=== PATIENT | male | born 1955 ===

== ENCOUNTER 2017-11-22 07:12 | Inpatient (IN) | payer BC, OTHER ==
[2017-11-22] MEDS ORDERED: NALOXONE 0.4 MG/ML VIAL. (07:55)
[2017-11-22] MEDS ORDERED: NALOXONE 2 MG/2 ML DISP.SYRIN. (07:58)
[2017-11-22] MEDS: NALOXONE 2 MG/2 ML DISP.SYRIN. IV (08:01)
[2017-11-22 08:02] LABS: ADD MAN DIFF? NO
[2017-11-22 08:07] LABS: BASO # 0.1 x10^3/uL (0.0-0.2); BASO % 1 % (0-3); EOS # 0.4 x10^3/uL (0.0-0.7); EOS % 3 % (0-3); HEMATOCRIT 43.3 % (39.0-53.0); HEMOGLOBIN 15.1 g/dL (13.0-17.5); LYMPH # 3.4 x10^3/uL (1.0-4.8); LYMPH % 31 % (24-48); MEAN CORPUSCULAR HEMOGLOBIN 33 pg (25-35); MEAN CORPUSCULAR HGB CONC 35 g/dL (31-37); MEAN CORPUSCULAR VOLUME 93 fL (79-100); MONO # 0.8 x10^3/uL (0.0-1.1); MONO % 7 % (0-9); NEUT # 6.4 x10^3uL (1.8-7.7); NEUT % 58 % (31-73); PLATELET COUNT 277 x10^3/uL (140-400); RED BLOOD COUNT 4.65 x10^6/uL (4.30-5.70); RED CELL DISTRIBUTION WIDTH 14.5 % (11.5-14.5); WHITE BLOOD COUNT 11.1 x10^3/uL (4.0-11.0)
[2017-11-22 08:15] LABS: ANION GAP 13 (6-14); BLOOD UREA NITROGEN 20 mg/dL (8-26); BUN/CREATININE RATIO 13 (6-20); CARBON DIOXIDE 24 mmol/L (21-32); CHLORIDE 99 mmol/L (98-107); CREATININE 1.5 mg/dL (0.7-1.3); GFR 47.3; GLUCOSE 180 mg/dL (70-99); POTASSIUM 3.6 mmol/L (3.5-5.1); SODIUM 136 mmol/L (136-145)
[2017-11-22 08:21] LABS: ALBUMIN 3.8 g/dL (3.4-5.0); ALK PHOS 72 U/L (46-116); ALT (SGPT) 34 U/L (16-63); AST (SGOT) 29 U/L (15-37); TOTAL BILIRUBIN 0.8 mg/dL (0.2-1.0); TOTAL PROTEIN 7.8 g/dL (6.4-8.2)
[2017-11-22 08:23] LABS: ETHANOL < 10 mg/dL (0-10)
[2017-11-22 08:30] LABS: TROPONINI < 0.017 ng/mL (0.000-0.055)
[2017-11-22] MEDS: IV NORMAL SALINE 1000ML BAG 1,000 ML IV (08:35)
[2017-11-22 08:40] LABS: POC GLUCOSE 175 mg/dL (70-99)
[2017-11-22] MEDS: ONDANSETRON PF 4 MG/2 ML VIAL. IV ×2 (10:52→16:14)
[2017-11-22] MEDS ORDERED: DEXTROSE 50% 25 GM / 50ML DISP.SYRIN. IV (11:00)
[2017-11-22] MEDS: NICOTINE 21MG PATCH. TD (11:15)
[2017-11-22] MEDS: NALOXONE 0.4 MG/ML VIAL. IV ×2 (11:58→16:01)
[2017-11-22] MEDS: INSULIN LISPRO 300 UNITS/3 ML INSULN.PEN. SQ ×2 (12:07→17:36)
[2017-11-22 12:13] LABS: POC GLUCOSE 172 mg/dL (70-99)
[2017-11-22 22:09] LABS: MRSA BY PCR Negative (Negative)
[2017-11-22 22:56] LABS: POC GLUCOSE 229 mg/dL (70-99)
[2017-11-23] MEDS: INSULIN LISPRO 300 UNITS/3 ML INSULN.PEN. SQ ×2 (08:13→12:00)
[2017-11-23] MEDS: NICOTINE 21MG PATCH. TD (09:32)
[2017-11-23 09:35] LABS: POC GLUCOSE 219 mg/dL (70-99)
== END 2017-11-23 12:45 | disposition home or self-care (01) | DRG 918 ==
LOC: ER 07:12 → 1 WEST ICU 08:15
DX: T40.601A Poisoning by unspecified narcotics, accidental (unintentional), initial encounter (principal); M19.90 Unspecified osteoarthritis, unspecified site; I10 Essential (primary) hypertension; E78.5 Hyperlipidemia, unspecified; E11.9 Type 2 diabetes mellitus without complications; Y92.89 Other specified places as the place of occurrence of the external cause
CPT/HCPCS: 36415; 71045; 80053; 82962; 84484; 85025; 87641; 93005; 96361; 96374; 99285; 99285-25; G0480; J1815; J2310; J2405; J7030